=== PATIENT | female | born 1980 | race Caucasian/White ===

== ENCOUNTER 2020-07-12 12:48 | Emergency (ER) | payer BC, MEDICAID ==
[~2020-07-12] VITALS: Ht 162.6 cm; Wt 81.4 kg
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
[2020-07-12] MEDS ORDERED: LABETALOL 5MG/ML, 20ML ONE (13:56)
[2020-07-12 13:59] LABS: BASOPHILS % (AUTO) 0 % (0-1); EOSINOPHILS % (AUTO) 1 % (1-7); LYMPHOCYTES % (AUTO) 21 % (22-44); MEAN CORPUSCULAR HEMOGLOBIN 31.7 pg (27.0-34.8); MEAN CORPUSCULAR HGB CONC 34.5 g/dL (32.4-35.8); MEAN PLATELET VOLUME 7.1 fL (7.4-10.4); MONOCYTES % (AUTO) 6 % (2-9); NEUTROPHILS % (AUTO) 73 % (42-75); PLATELET COUNT 274 x10^3/uL (130-400); RED BLOOD COUNT 4.56 x10^6/uL (3.82-5.3)
[2020-07-12] MEDS ORDERED: LABETALOL 5MG/ML, 20ML IVPush ONE (14:00)
[2020-07-12] MEDS ORDERED: SODIUM CHLORIDE FLUSH 10ML SYR IVF ONE (14:00)
[2020-07-12 14:02] LABS: MD NO
[2020-07-12 14:08] LABS: ALANINE AMINOTRANSFERASE 31 U/L (12-78); ALBUMIN 3.5 g/dL (3.4-5.0); ANION GAP 10 mmol/L (5-15); CALCIUM 9.3 mg/dL (8.5-10.1); CHLORIDE 109 mmol/L (98-107); CREATININE 0.78 mg/dL (0.55-1.02)
[2020-07-12 14:12] LABS: ALKALINE PHOSPHATASE 57 U/L (45-117); BILIRUBIN,TOTAL 0.5 mg/dL (0.2-1.0); TOTAL PROTEIN 7.2 g/dL (6.4-8.2); TROPONIN I < 0.015 ng/mL (0.000-0.045)
--- NOTE | 2020-07-12 15:12 | NUR ---
PT AMBULATED TO BR WITHOUT DIFFICULTY. CHART UP FOR RECHECK.
--- NOTE | 2020-07-12 15:30 | NUR ---
TASK RN: MEAL TRAY GIVEN.
[2020-07-12] MEDS ORDERED: hydrALAzine 20 MG/ML, 1ML ONE (16:14)
[2020-07-12] MEDS ORDERED: hydrALAzine 20 MG/ML, 1ML IV ONE (16:30)
--- NOTE | 2020-07-12 16:32 | NUR ---
PT MEDICATED WITH HYDRALAZINE IV. ERP AT FOR RECHECK NOW.
--- NOTE | 2020-07-12 17:23 | NUR ---
PT HAD MEAL TRAY. ERP WAS IN FOR RECHECK.
[2020-07-12 17:30] VITALS: BP 148/75
--- NOTE | 2020-07-12 17:30 | NUR ---
D/C INSTRUCTIONS, MEDS & F/U APPT RV'WD WITH PT, SHE VERBALIZES UNDERSTANDING. RX GIVEN X1. PT AMBULATED OUT OF ED WITH SON WITHOUT DIFFICULTY.
== END 2020-07-12 17:34 | disposition home or self-care (01) ==
LOC: ED 13:46
DX: I10 Essential (primary) hypertension (principal); R53.83 Other fatigue; Z87.891 Personal history of nicotine dependence
CPT/HCPCS: 36415; 80053; 84484; 85025; 93005; 96374; 96375; 99285; J0360

== ENCOUNTER 2020-08-10 11:02 | Emergency (ER) | payer BC ==
[~2020-08-10] VITALS: Ht 162.6 cm; Wt 82.6 kg
--- NOTE | 2020-08-10 11:24 | NUR ---
ASSUMED CARE OF PT.
[2020-08-10] MEDS ORDERED: METOPROLOL 1 MG/ML, 5ML IVPush ONE (11:30)
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
--- NOTE | 2020-08-10 11:36 | NUR ---
PROVIDER AT BEDSIDE FOR ASSESSMENT. PLAN OF CARE DISCUSSED.
[2020-08-10] MEDS ORDERED: METOPROLOL 1 MG/ML, 5ML ONE (11:39)
[2020-08-10] MEDS ORDERED: LABETALOL 5MG/ML, 20ML ONE (11:51)
[2020-08-10 11:56] LABS: BASOPHILS % (AUTO) 1 % (0-1); EOSINOPHILS % (AUTO) 1 % (1-7); LYMPHOCYTES % (AUTO) 23 % (22-44); MD NO; MEAN CORPUSCULAR HEMOGLOBIN 31.8 pg (27.0-34.8); MEAN CORPUSCULAR HGB CONC 34.5 g/dL (32.4-35.8); MEAN PLATELET VOLUME 7.1 fL (7.4-10.4); MONOCYTES % (AUTO) 7 % (2-9); NEUTROPHILS % (AUTO) 68 % (42-75); PLATELET COUNT 280 x10^3/uL (130-400); RED BLOOD COUNT 4.63 x10^6/uL (3.82-5.3)
--- NOTE | 2020-08-10 11:57 | NUR ---
[place]. IV ACCESS OBTAINED. ORDERED MEDICATION ADMINISTERED. WILL CONTINUE TO MONITOR
[2020-08-10] MEDS ORDERED: SODIUM CHLORIDE FLUSH 10ML SYR IVF ONE (12:00)
[2020-08-10] MEDS ORDERED: LABETALOL 5MG/ML, 20ML IVPush ONE (12:00)
[2020-08-10 12:07] LABS: ALBUMIN 3.7 g/dL (3.4-5.0); ANION GAP 10 mmol/L (5-15); CALCIUM 8.5 mg/dL (8.5-10.1); CHLORIDE 109 mmol/L (98-107); CREATININE 0.71 mg/dL (0.55-1.02)
[2020-08-10 12:12] LABS: TROPONIN I < 0.015 ng/mL (0.000-0.045)
--- NOTE | 2020-08-10 12:47 | NUR ---
PT AMBULATED TO BATHROOM W/STEADY GAIT. URINE SAMPLE OBTAINED. RESTING ON GURNEY.
[2020-08-10] MEDS ORDERED: METO50TA82 PO (12:49)
--- NOTE | 2020-08-10 13:16 | NUR ---
DR ZULUAGA AT BEDSIDE TO DISCUSS RESULTS. PLAN OF CARE DISCUSSED.
--- NOTE | 2020-08-10 13:38 | NUR ---
TASK RN: PT D/C PAPERS UP. BP REMAINS HIGH 170/105, DISCUSSED WITH DR. ZULUAGA, NEW ORDERS REC'D AND PT MED NOTED 0.1 CLONIDINE. PRIMARY RN, KIARA HERNANDEZ. PT CALL LIGHT W/I REACH NAD NOTED.
[2020-08-10 14:00] VITALS: BP 168/94
--- NOTE | 2020-08-10 14:14 | NUR ---
BREAK RN: PER PT SAFE TO DC W/ CURRENT BP. Patient given discharge instructions and they have confirmed that they understand the instructions. Patient ambulatory with steady gait.
== END 2020-08-10 14:16 | disposition home or self-care (01) ==
LOC: ED 12:40
DX: R07.89 Other chest pain (principal); I10 Essential (primary) hypertension; M79.10 Myalgia, unspecified site
CPT/HCPCS: 36415; 71045; 80048; 82040; 84484; 84703; 85025; 93005; 96374; 99285